=== PATIENT | female | born 1970 | race African-American/Black ===

== ENCOUNTER 2017-01-22 21:20 | Emergency (ER) | payer OTHER ==
[~2017-01-22] VITALS: Ht 175.3 cm; Wt 56.2 kg
[2017-01-22] MEDS ORDERED: IBUPROFEN 800 MG TABLET PO ONE (23:15)
[2017-01-22] MEDS ORDERED: IBUPROFEN 800 MG TABLET ONE (23:26)
--- NOTE | 2017-01-23 00:15 | NUR ---
Patient discharged to home in stable conditon. Written and verbal after care instructions given. Patient verbalizes understanding of instructions.
== END 2017-01-23 00:51 | disposition home or self-care (01) ==
LOC: ER 21:21
DX: S67.190A Crushing injury of right index finger, initial encounter (principal); S67.01XA Crushing injury of right thumb, initial encounter; S67.21XA Crushing injury of right hand, initial encounter; Z88.6 Allergy status to analgesic agent; Z88.8 Allergy status to other drugs, medicaments and biological substances; W20.8XXA Other cause of strike by thrown, projected or falling object, initial encounter; Y93.89 Activity, other specified; Y92.9 Unspecified place or not applicable; Y99.9 Unspecified external cause status
CPT/HCPCS: 73130; A4663

== ENCOUNTER 2019-02-17 18:52 | Emergency (ER) | payer OTHER ==
[~2019-02-17] VITALS: Ht 175.3 cm; Wt 55.3 kg
[2019-02-17] MEDS ORDERED: LEVE500T9 PO (19:03)
[2019-02-17] MEDS ORDERED: PANT40TA2 PO (19:03)
[2019-02-17] MEDS ORDERED: TRAZ-182 PO (19:03)
[2019-02-17] MEDS: IV NORMAL SALINE 1000 ML BAG IV ONE (19:40)
[2019-02-17 19:44] LABS: BASOPHILS # (AUTO) 0.1 K/uL (0.0-8.0); BASOPHILS % (AUTO) 1.5 % (0.0-2.0); EOSINOPHILS # (AUTO) 0.1 K/uL (0.0-0.7); EOSINOPHILS % (AUTO) 1.7 % (0.0-7.0); HEMATOCRIT 26.3 % (31.2-41.9); HEMOGLOBIN 8.7 g/dL (10.9-14.3); LYMPHOCYTES # (AUTO) 0.9 K/uL (20.0-40.0); LYMPHOCYTES % (AUTO) 25.7 % (20.5-51.5); MEAN CORPUSCULAR HGB CONC 33 g/dL (32.3-35.6); MEAN CORPUSCULAR VOLUME 72.4 fL (75.5-95.3); MONOCYTES # (AUTO) 0.4 K/uL (2.0-10.0); MONOCYTES % (AUTO) 12.4 % (0.0-11.0); NEUTROPHILS # (AUTO) 2.1 K/uL (1.8-8.9); NEUTROPHILS % (AUTO) 58.7 % (38.5-71.5); PLATELET COUNT (AUTO) 85 K/uL (179-408); RED BLOOD CELL COUNT(AUTO) 3.63 MIL/uL (3.63-4.92); WHITE BLOOD COUNT (AUTO) 3.5 K/uL (3.8-11.8)
[2019-02-17] MEDS ORDERED: ONDANSETRON 4 MG/2 ML VIAL ONE (19:45)
[2019-02-17] MEDS ORDERED: LORAZEPAM 2 MG/1 ML VIAL ONE (19:46)
[2019-02-17] MEDS: LORAZEPAM 2 MG/1 ML VIAL IV ONE (19:47)
[2019-02-17] MEDS: ONDANSETRON 4 MG/2 ML VIAL IV ONE (19:47)
[2019-02-17] MEDS ORDERED: LEVETIRACETAM 500 MG/5 ML VIAL IV ONE (19:52)
[2019-02-17] MEDS: LEVETIRACETAM IV 500 MG in IV DEXTROSE 5% 100 ML IV ONE (19:53)
[2019-02-17 19:56] LABS: BILIRUBIN,DIRECT 1.6 mg/dL (0.0-0.2); BILIRUBIN,TOTAL 3.5 mg/dL (0.2-1.0); CREATININE 0.7 mg/dL (0.6-1.3); POTASSIUM 3.6 mmol/L (3.5-5.1); TOTAL PROTEIN, SERUM 7.5 g/dL (6.4-8.2)
[2019-02-17 19:57] LABS: ACETAMINOPHEN < 2.0 ug/mL (10-30)
[2019-02-17 20:04] LABS: LYMPHOCYTES % (MANUAL) 25 % (20-40); MONOCYTES % (MANUAL) 9 % (2-10); NEUTROPHILS % (MANUAL) 66 % (42-75); THYROID STIMULATING HORMONE 1.371 mIU/mL (0.358-3.740)
--- NOTE | 2019-02-17 21:00 | NUR ---
Patient discharged to home in stable conditon. Written and verbal after care instructions given. Patient verbalizes understanding of instructions. PATIENT LEFT WITH STABLE GAIT, ACCOMPANIED BY OUTPATIENT REHAB STAFF
[2019-02-17 21:01] VITALS: BP 110/63
== END 2019-02-17 21:01 | disposition home or self-care (01) ==
LOC: ER 18:52
DX: G40.909 Epilepsy, unspecified, not intractable, without status epilepticus (principal); F10.239 Alcohol dependence with withdrawal, unspecified; D53.9 Nutritional anemia, unspecified; Z88.5 Allergy status to narcotic agent; Z88.8 Allergy status to other drugs, medicaments and biological substances; Z79.899 Other long term (current) drug therapy; Y90.2 Blood alcohol level of 40-59 mg/100 ml
CPT/HCPCS: 36415; 80048; 80076; 84443; 84702; 85025; 96374; 96375; 99283; G0480 ×2; G0481; J1953; J2060; J2405; J7060; A4663; J7030

== ENCOUNTER 2019-06-26 20:41 | Inpatient (IN) | payer BC, OTHER ==
[~2019-06-26] VITALS: Ht 175.3 cm; Wt 55.3 kg
[2019-06-26] MEDS ORDERED: ONDANSETRON 4 MG/2 ML VIAL IV ONE (21:15)
[2019-06-26] MEDS ORDERED: IV NORMAL SALINE 1000 ML BAG IV ONE (21:15)
[2019-06-26] MEDS ORDERED: ONDANSETRON 4 MG/2 ML VIAL ONE (21:19)
--- NOTE | 2019-06-26 21:27 | NUR ---
PT STATES SHE IS NOT , DENIES POSSIBILITY OF . PT SIGNED WAIVER FOR CT SCAN.
[2019-06-26 21:31] LABS: EOSINOPHILS # (AUTO) 0.1 K/uL (0.0-0.7); LYMPHOCYTES # (AUTO) 0.6 K/uL (20.0-40.0); MEAN CORPUSCULAR VOLUME 68.9 fL (75.5-95.3); MONOCYTES # (AUTO) 0.2 K/uL (2.0-10.0); NEUTROPHILS # (AUTO) 1.3 K/uL (1.8-8.9); WHITE BLOOD COUNT (AUTO) 2.2 K/uL (3.8-11.8)
[2019-06-26 21:32] LABS: BASOPHILS % (AUTO) 1.3 % (0.0-2.0); EOSINOPHILS % (AUTO) 3.3 % (0.0-7.0); LYMPHOCYTES % (AUTO) 27.3 % (20.5-51.5); MEAN CORPUSCULAR HEMOGLOBIN 22.5 uug (24.7-32.8); MEAN CORPUSCULAR HGB CONC 33 g/dL (32.3-35.6); MONOCYTES % (AUTO) 7.2 % (0.0-11.0); NEUTROPHILS % (AUTO) 60.9 % (38.5-71.5)
[2019-06-26 21:35] LABS: CARBON DIOXIDE 24 mmol/L (21-32); CHLORIDE 107 mmol/L (98-107); CREATININE 0.6 mg/dL (0.6-1.3); GLUCOSE 90 mg/dL (74-106); POTASSIUM 3.4 mmol/L (3.5-5.1); UREA NITROGEN, BLOOD 6 mg/dL (7-18)
[2019-06-26 21:37] LABS: HEMATOCRIT 13.5 % (31.2-41.9); HEMOGLOBIN 4.4 g/dL (10.9-14.3); RED BLOOD CELL COUNT(AUTO) 1.96 MIL/uL (3.63-4.92)
[2019-06-26 21:38] LABS: PLATELET COUNT (AUTO) 24 K/uL (179-408)
[2019-06-26 21:40] LABS: ALANINE AMINOTRANSFERASE 26 U/L (14-59); ALKALINE PHOSPHATASE 137 U/L (50-136); ASPARTATE AMINOTRANSFERASE 55 U/L (15-37); LIPASE 193 U/L (73-393); TOTAL PROTEIN, SERUM 6.4 g/dL (6.4-8.2)
[2019-06-26 21:59] LABS: BAND % (MANUAL) 1 % (0-10); EOSINOPHILS % (MANUAL) 5 % (0-8); LYMPHOCYTES % (MANUAL) 23 % (20-40); MONOCYTES % (MANUAL) 6 % (2-10); NEUTROPHILS % (MANUAL) 65 % (42-75)
--- NOTE | 2019-06-26 22:20 | NUR ---
Pt. admitted to TELEMETRY under care of Dr. Martel. Diagnosis: Pancytopenia/Abdominal Pain Belongs List completed
--- NOTE | 2019-06-26 22:35 | NUR ---
PATIENT RECEIVED VIA GURNEY TO TELEMETRY MONITORING. ALERT AND ORIENTED X 4. NO C.O PAIN AT THIS TIME. ADMITTING DIAGNOSIS IS PANCYTOPENIA AND ABDOMINAL PAIN. C/O NAUSEA WITH NO VOMITING. FAMILY AT BEDSIDE REQUESTING TO COME BACK IN ONE HOUR. TOLD FAMILY PER PROTOCOL THAT PATIENT IS AMBULATORY AND DOESN'T NEED A SITTER WATCHING HER DURING THE NIGHT. IV IN THE LEFT WRIST 20 G WITH NS RUNNING OPEN INTO THE VEIN. BLOOD TRANSFUSION ORDER. BLOOD WAITING TO PICKED UP IN LAB. PATIENT STATES THAT SHE HAS A HISTORY OF SEIZURES. SEIZURE PRECAUTIONS INITIATED. CRITICAL LAB VALUES NOTED. WILL CONTINUE TO MONITOR.
[2019-06-26] MEDS ORDERED: POTASSIUM CHLORIDE 20 MEQ TAB.PRT.SR PO ONE (22:45)
[2019-06-26] MEDS ORDERED: FOLIC ACID 1 MG in IV DEXTROSE 5% 50 ML IV SCH (22:45)
[2019-06-26] MEDS ORDERED: IV NS 1000 ML 1,000 ML IV SCH (22:45)
[2019-06-26] MEDS ORDERED: Z GUARD REMEDY PASTE 57 GM TUBE TOP PRN (22:45)
[2019-06-26] MEDS ORDERED: FUROSEMIDE 20 MG/2 ML VIAL IV SCH (22:45)
[2019-06-26] MEDS ORDERED: MAGNESIUM HYDROXIDE 30 ML LIQUID UDC PO PRN (22:45)
[2019-06-26] MEDS ORDERED: TRAZODONE 50 MG TABLET PO SCH (22:45)
[2019-06-26] MEDS ORDERED: ONDANSETRON HCL 4 MG TABLET PO SCH (22:45)
[2019-06-26] MEDS ORDERED: PHARMACY TO ADD 1 AMP OF MVI DAILY TO IVF ONE BAG XX PRN (22:45)
[2019-06-26] MEDS ORDERED: MVI ADULT 10 ML VIAL=1 AMP 10 ML in IV NS 1000 ML 1,000 ML IV SCH (23:30)
[2019-06-27] VITALS (22 sets, daily range): BP systolic 102–130; BP diastolic 48–82
--- NOTE | 2019-06-27 00:15 | NUR ---
BLOOD TRANSFUSION STARTED.
[2019-06-27] MEDS ORDERED: THIAMINE HCL 200 MG/2 ML VIAL ONE (00:42)
[2019-06-27] MEDS ORDERED: FOLIC ACID 5 MG/ML VIAL IV ONE (00:42)
[2019-06-27] MEDS ORDERED: MVI-12 10 ML ONE (00:52)
--- NOTE | 2019-06-27 01:15 | NUR ---
PATIENT HAD GRAND MOL SEIZURE LASTING 20 SECONDS. OXYGEN STARTED BY RAPID RESPONSE. MINE DEPUTY WYATT CONTACTED MY CHARGE NURSE AND ATIVAN ORDER OBTAINED. WILL CONTINUE TO MONITOR.
[2019-06-27] MEDS: LORAZEPAM 2 MG/1 ML VIAL IV PRN ×2 (01:29→16:05)
[2019-06-27] MEDS: THIAMINE HCL INJ 100 MG in IV DEXTROSE 5% 50 ML IV SCH ×2 (01:32→22:08)
--- NOTE | 2019-06-27 02:50 | NUR ---
SECOND BLOOD PACK STARTED. TOLERATING WELL
[2019-06-27] MEDS: ONDANSETRON 4 MG/2 ML VIAL IV PRN ×3 (03:01→16:05)
--- NOTE | 2019-06-27 05:50 | NUR ---
THIRD UNIT OF BLOOD STARTED. WILL CONTINUE TO MONITOR.
[2019-06-27] MEDS: PANTOPRAZOLE SODIUM 40 MG TABLET.DR PO SCH (06:50)
[2019-06-27] MEDS ORDERED: MVI ADULT 10 ML VIAL=1 AMP 10 ML in IV NS 1000 ML 1,000 ML IV PRN (08:18)
[2019-06-27] MEDS ORDERED: LEVETIRACETAM 500 MG TABLET PO SCH (09:00)
[2019-06-27] MEDS: LEVETIRACETAM 500 MG TABLET PO SCH ×2 (09:06→21:13)
[2019-06-27] MEDS ORDERED: KETOROLAC TROMETHAMINE 30 MG INJ IVP ONE (10:00)
[2019-06-27 10:26] LABS: CARBON DIOXIDE 23 mmol/L (21-32); CHLORIDE 108 mmol/L (98-107); CHOLESTEROL 110 mg/dL (<200); CREATININE 0.5 mg/dL (0.6-1.3); GLUCOSE 97 mg/dL (74-106); HDL CHOLESTEROL 53 mg/dL (40-60); MAGNESIUM 1.4 mg/dL (1.8-2.4); PHOSPHOROUS 3.1 mg/dL (2.5-4.9); POTASSIUM 3.5 mmol/L (3.5-5.1); TRIGLYCERIDES 39 MG/DL (30-150); UREA NITROGEN, BLOOD 4 mg/dL (7-18)
[2019-06-27 10:41] LABS: BASOPHILS % (AUTO) 1.8 % (0.0-2.0); EOSINOPHILS # (AUTO) 0.1 K/uL (0.0-0.7); EOSINOPHILS % (AUTO) 2.4 % (0.0-7.0); LYMPHOCYTES # (AUTO) 0.4 K/uL (20.0-40.0); LYMPHOCYTES % (AUTO) 18.8 % (20.5-51.5); MEAN CORPUSCULAR HEMOGLOBIN 25.9 uug (24.7-32.8); MEAN CORPUSCULAR HGB CONC 34 g/dL (32.3-35.6); MEAN CORPUSCULAR VOLUME 77.3 fL (75.5-95.3); MONOCYTES # (AUTO) 0.1 K/uL (2.0-10.0); MONOCYTES % (AUTO) 6.8 % (0.0-11.0); NEUTROPHILS # (AUTO) 1.5 K/uL (1.8-8.9); NEUTROPHILS % (AUTO) 70.2 % (38.5-71.5); RED BLOOD CELL COUNT(AUTO) 2.75 MIL/uL (3.63-4.92); WHITE BLOOD COUNT (AUTO) 2.1 K/uL (3.8-11.8)
[2019-06-27 10:56] LABS: HEMOGLOBIN 7.1 g/dL (10.9-14.3)
[2019-06-27 10:57] LABS: HEMATOCRIT 21.3 % (31.2-41.9)
[2019-06-27 10:58] LABS: PLATELET COUNT (AUTO) 18 K/uL (179-408)
[2019-06-27 11:19] LABS: BAND % (MANUAL) 2 % (0-10); EOSINOPHILS % (MANUAL) 4 % (0-8); LYMPHOCYTES % (MANUAL) 12 % (20-40); MONOCYTES % (MANUAL) 8 % (2-10); NEUTROPHILS % (MANUAL) 74 % (42-75)
[2019-06-27] MEDS: IV NS 1000 ML 1,000 ML IV PRN (14:05)
[2019-06-27 16:11] LABS: HEMATOCRIT 25.9 % (31.2-41.9); HEMOGLOBIN 8.9 g/dL (10.9-14.3)
--- NOTE | 2019-06-27 20:52 | NUR ---
report given to ambulance personnel. v/s stable and no signs of acute distress. report given to shelter from morning nurse. paperwork completed by morning nurse. patient discharged with belongings. Addendum: 06/27/19 at 2101 by JAM BOYER RN wrong patient
[2019-06-27] MEDS ORDERED: TRAZODONE 50 MG TABLET PO SCH (21:00)
[2019-06-27] MEDS: TRAZODONE 50 MG TABLET PO SCH (21:13)
[2019-06-27] MEDS ORDERED: ONDANSETRON HCL 4 MG TABLET PO PRN (22:45)
[2019-06-28 01:10] VITALS: BP 110/68
--- NOTE | 2019-06-28 05:52 | NUR ---
patient received in bed with family at bedside. no s/s of acute distress and v/s stable at this throughout shift. safety and comfort measures provided. bed in lowest position, side rails up x2, bed in lowest position. NSR on tele monitor. will continue plan of care and endorse accordingly.
[2019-06-28 05:54] VITALS: BP 108/66
[2019-06-28 06:20] LABS: EOSINOPHILS # (AUTO) 0.1 K/uL (0.0-0.7); LYMPHOCYTES # (AUTO) 0.5 K/uL (20.0-40.0); MONOCYTES # (AUTO) 0.2 K/uL (2.0-10.0)
[2019-06-28 06:23] LABS: BASOPHILS % (AUTO) 0.7 % (0.0-2.0); EOSINOPHILS % (AUTO) 5.1 % (0.0-7.0); HEMATOCRIT 24.9 % (31.2-41.9); HEMOGLOBIN 8.5 g/dL (10.9-14.3); LYMPHOCYTES % (AUTO) 17.6 % (20.5-51.5); MEAN CORPUSCULAR HEMOGLOBIN 26.4 uug (24.7-32.8); MEAN CORPUSCULAR HGB CONC 34 g/dL (32.3-35.6); MEAN CORPUSCULAR VOLUME 77.4 fL (75.5-95.3); MONOCYTES % (AUTO) 6.2 % (0.0-11.0); NEUTROPHILS % (AUTO) 70.4 % (38.5-71.5); RED BLOOD CELL COUNT(AUTO) 3.22 MIL/uL (3.63-4.92); WHITE BLOOD COUNT (AUTO) 2.8 K/uL (3.8-11.8)
[2019-06-28] MEDS: PANTOPRAZOLE SODIUM 40 MG TABLET.DR PO SCH (06:31)
[2019-06-28 06:40] LABS: CREATININE 0.7 mg/dL (0.6-1.3); POTASSIUM 3.2 mmol/L (3.5-5.1)
[2019-06-28 06:58] LABS: PLATELET COUNT (AUTO) 15 K/uL (179-408)
--- NOTE | 2019-06-28 06:59 | NUR ---
CRITICAL LAB VALUE FOR PLATELET [address] MATTHEWS. NO NEW ORDERS AT THIS TIME.
--- NOTE | 2019-06-28 07:30 | NUR ---
Patient calm and comfortable resting in bed with no signs of distress; patient with stable vital signs ; patient will continue to be monitored.
[2019-06-28] MEDS ORDERED: PHARMACY TO ADD 1 AMP OF MVI DAILY TO IVF ONE BAG XX PRN (07:45)
[2019-06-28] MEDS ORDERED: MVI ADULT 10 ML VIAL=1 AMP 10 ML in IV NS 1000 ML 1,000 ML IV PRN (07:45)
[2019-06-28] MEDS ORDERED: POTASSIUM CHLORIDE 20 MEQ TAB.PRT.SR PO ONE (08:15)
[2019-06-28] MEDS ORDERED: MULTIVITAMINS,THERAPEUTIC TABLET PO ONE (09:00)
[2019-06-28] MEDS: LEVETIRACETAM 500 MG TABLET PO SCH ×2 (09:23→20:54)
[2019-06-28 11:22] VITALS: BP 110/67
[2019-06-28] MEDS: IV NS 1000 ML 1,000 ML IV PRN (14:27)
[2019-06-28 16:00] VITALS: BP 124/79
--- NOTE | 2019-06-28 18:51 | NUR ---
Patient calm and comfortable through out shift with no signs of distress with rehabilitation caregiver by bedside. Patient gave verbal consent that caregiver could speak directly to MD ; platelets order but not ready by lab until 5:45 per [employer] [facility]; when platelets brought up ; barcode unable to be read ; Report given to oncoming nurse to administer platelets when ready by lab. Caregiver and MD spoke and MD requested that if patient wanted a later transfer to [facility] as patient primary caregivers at location to notified Md so that he could communicate with case management. Patient with vital signs and medication compliant. Report given to oncoming nurse.
[2019-06-28 20:00] VITALS: BP 123/76
[2019-06-28] MEDS: TRAZODONE 50 MG TABLET PO SCH (20:54)
[2019-06-28] MEDS: THIAMINE HCL INJ 100 MG in IV DEXTROSE 5% 50 ML IV SCH ×2 (20:54→21:00)
[2019-06-28] MEDS: LORAZEPAM 2 MG/1 ML VIAL IV PRN ×2 (21:53→22:09)
[2019-06-28] MEDS: FOLIC ACID 1 MG in IV DEXTROSE 5% 50 ML IV SCH (22:09)
--- NOTE | 2019-06-28 22:09 | NUR ---
c/o of anxiety. administered ativan PRN. tolerated well.
--- NOTE | 2019-06-28 22:25 | NUR ---
transfusion complete. v/s stable. tolerated well. no reactions. will continue to monitor. Addendum: 06/29/19 at 0330 by JAM BOYER RN transfusion completed [id number]
--- NOTE | 2019-06-28 22:30 | NUR ---
picked up transfusion from laboratory. barcodes not scanning on [employer] transfusion verify. same problem was occurring during the day time, but problem was not fixed. Poppy Baltazar from laboratory and [facility] laboratory secretary Ashutosh barry reported that it was okay to give to patient and no other way to fix barcode scanning reoccurring issue. will transfuse and continue to monitor. charge aware of situation. Addendum: 06/29/19 at 0339 by JAM BOYER RN manually reported transfusion verification. in patients chart. Addendum: 06/29/19 at 0346 by JAM BOYER RN consent form signed and in patients file.
[2019-06-29] VITALS (9 sets, daily range): BP systolic 106–129; BP diastolic 63–80
[2019-06-29] MEDS: FOLIC ACID 1 MG in IV DEXTROSE 5% 50 ML IV SCH (00:09)
--- NOTE | 2019-06-29 00:15 | NUR ---
Dr. purdy contacted regarding blood in urine. no new orders at this time.
[2019-06-29] MEDS: IV NS 1000 ML 1,000 ML IV PRN ×2 (04:22→23:00)
[2019-06-29] MEDS: PANTOPRAZOLE SODIUM 40 MG TABLET.DR PO SCH (06:08)
[2019-06-29 06:44] LABS: BASOPHILS % (AUTO) 0.9 % (0.0-2.0); EOSINOPHILS # (AUTO) 0.1 K/uL (0.0-0.7); EOSINOPHILS % (AUTO) 2.1 % (0.0-7.0); HEMATOCRIT 24.5 % (31.2-41.9); HEMOGLOBIN 8.3 g/dL (10.9-14.3); LYMPHOCYTES # (AUTO) 0.4 K/uL (20.0-40.0); LYMPHOCYTES % (AUTO) 10.5 % (20.5-51.5); MEAN CORPUSCULAR HEMOGLOBIN 26.5 uug (24.7-32.8); MEAN CORPUSCULAR HGB CONC 34 g/dL (32.3-35.6); MEAN CORPUSCULAR VOLUME 78.8 fL (75.5-95.3); MONOCYTES # (AUTO) 0.2 K/uL (2.0-10.0); NEUTROPHILS # (AUTO) 2.8 K/uL (1.8-8.9); NEUTROPHILS % (AUTO) 81.5 % (38.5-71.5); RED BLOOD CELL COUNT(AUTO) 3.11 MIL/uL (3.63-4.92); WHITE BLOOD COUNT (AUTO) 3.5 K/uL (3.8-11.8)
[2019-06-29 07:18] LABS: CREATININE 0.7 mg/dL (0.6-1.3)
--- NOTE | 2019-06-29 07:21 | NUR ---
DR. PEDERSEN MADE AWARE OF CRITICAL LAB VALUE PLATELET [address]. [address] NECESSARY ORDERS.
[2019-06-29 07:22] LABS: PLATELET COUNT (AUTO) 20 K/uL (179-408)
--- NOTE | 2019-06-29 08:00 | NUR ---
Received pt. resting in bed alert oriented x4 with staff assistant at bedside. Pt. has IV in R hand 20 gauge intact patent running prescribed fluids. Pt. has wolf catheter in draining yellow urine with some blood tinge color. aware of urine. Pt. on seizure precautions side rails padded. Pt. denies nausea, headache, dizziness, chills. Pt. comfortable and complaint with care. Safety measures in place. All needs met. Call light within reach. Will continue to monitor pt.
[2019-06-29 08:14] LABS: EOSINOPHILS % (MANUAL) 2 % (0-8); LYMPHOCYTES % (MANUAL) 3 % (20-40); NEUTROPHILS % (MANUAL) 95 % (42-75)
[2019-06-29] MEDS: MULTIVITAMINS,THERAPEUTIC TABLET PO SCH (08:31)
[2019-06-29] MEDS: LEVETIRACETAM 500 MG TABLET PO SCH ×2 (08:31→20:44)
[2019-06-29] MEDS ORDERED: POTASSIUM CHLORIDE 20 MEQ TAB.PRT.SR PO ONE (09:45)
[2019-06-29 10:25] LABS: *CLARITY,URINE CLOUDY (CLEAR); *COLOR,URINE AMBER (YELLOW); *KETONES,URINE 2+ (NEGATIVE); UGLUCOSE NEG (NEGATIVE)
[2019-06-29 10:26] LABS: *BILIRUBIN,URIN 2+ (NEGATIVE); LEUKOCYTE ESTERASE ,URINE NEGATIVE (NEGATIVE); NITRITE, URINE NEG (NEGATIVE)
[2019-06-29 10:27] LABS: *BLOOD, URINE 3+ (NEGATIVE)
[2019-06-29 10:45] LABS: BACTERIA,URINE NONE SEEN /HPF (NONE SEEN); RBC,URINE TNTC /HPF (0-3); SQUAMOUS EPITHELIAL CELL,UR FEW /HPF (NONE SEEN); WBC,URINE NONE SEEN /HPF (0-3)
--- NOTE | 2019-06-29 11:00 | NUR ---
Pt. ordered to receive platelet transfusion. Spoke to charge nurse about platelet transfusion policy and what infusion rate is recommended Also stated pt. has a [address] and is a hard stick do we need a larger gauge as with normal blood we need 20 gauge or greater. Charge nurse stated as long as it is flushing it is okay and pt. had transfusion prior with this gauge size. Checked 22 gauge IV on hand and it is flushing well.
--- NOTE | 2019-06-29 12:00 | NUR ---
Charge nurse printed policy of blood transfusion; however, it does not state anything about platelet transfusion. He stated to start transfusion at low rate and to go up to 120 cc/hr. Platelets transfusing well. Vital signs stable. CRISTIN Gay verified platelet transfusion and witnessed rate platelets should be running at.
[2019-06-29] MEDS: POTASSIUM CHLORIDE 10 MEQ TAB.PRT.SR PO SCH ×2 (12:36→16:50)
--- NOTE | 2019-06-29 14:20 | NUR ---
IV started leaking during platelet transfusion. [employer] aware. TECHNICAL ACCOUNT MANAGER and MARKING MACHINE OPERATOR both attempted to put in 22 gauge IVs as pt.'s veins are small. No IV access available. Stopped transfusion and returned platelets back to lab. Midline ordered. Not going to be able to have midline put in until 9 PM tonight according to RN supervisor bottle house cleaners. Spoke to Dr. Martel over the phone explaining situation. He stated that we will check her labs tomorrow morning to see if she needs more platelets and if pt. wants lab draws done to check platelets able to put in order for 10 PM, wolf catheter able to be removed. Pt. aware of plan of care.
--- NOTE | 2019-06-29 15:22 | NUR ---
Pt. has temperature of 99.1 low grade fever. Applying cooling measures. Will recheck temperature
--- NOTE | 2019-06-29 17:56 | NUR ---
Rechecked temperature it is now 98.6. Pt. in no distress. All needs met. Safety measures in place. Call light within reach. will continue to monitor pt.
[2019-06-29] MEDS: THIAMINE HCL 100 MG TABLET PO SCH (20:44)
[2019-06-29] MEDS: FOLIC ACID 1 MG TABLET PO SCH (20:44)
[2019-06-29] MEDS: TRAZODONE 50 MG TABLET PO SCH (20:44)
--- NOTE | 2019-06-29 22:15 | NUR ---
New midline inserted by Midline Nurse on the MAUREEN. Flushing well. intact, fluids resumed. Pt sleeping well at this time.
[2019-06-30 05:15] VITALS: BP 107/65
--- NOTE | 2019-06-30 06:04 | NUR ---
Slept well through the night with no issues. Fall and safety precautions maintained. Will continue to monitor and endorse accordingly.
[2019-06-30] MEDS: PANTOPRAZOLE SODIUM 40 MG TABLET.DR PO SCH (06:29)
[2019-06-30 06:48] LABS: CREATININE 0.6 mg/dL (0.6-1.3); POTASSIUM 3.5 mmol/L (3.5-5.1)
[2019-06-30 07:28] LABS: HEMATOCRIT 23.8 % (31.2-41.9); HEMOGLOBIN 8.1 g/dL (10.9-14.3); LYMPHOCYTES # (AUTO) 0.5 K/uL (20.0-40.0); MONOCYTES # (AUTO) 0.2 K/uL (2.0-10.0); NEUTROPHILS # (AUTO) 1.7 K/uL (1.8-8.9)
[2019-06-30 07:43] LABS: BASOPHILS % (AUTO) 0.5 % (0.0-2.0); EOSINOPHILS # (AUTO) 0.1 K/uL (0.0-0.7); EOSINOPHILS % (AUTO) 4.8 % (0.0-7.0); MEAN CORPUSCULAR HEMOGLOBIN 27.8 uug (24.7-32.8); MEAN CORPUSCULAR HGB CONC 34 g/dL (32.3-35.6); MEAN CORPUSCULAR VOLUME 81.6 fL (75.5-95.3); MONOCYTES % (AUTO) 8.2 % (0.0-11.0); NEUTROPHILS % (AUTO) 67.5 % (38.5-71.5); RED BLOOD CELL COUNT(AUTO) 2.92 MIL/uL (3.63-4.92)
[2019-06-30 07:47] LABS: WHITE BLOOD COUNT (AUTO) 2.5 K/uL (3.8-11.8)
[2019-06-30 07:48] LABS: PLATELET COUNT (AUTO) 23 K/uL (179-408)
--- NOTE | 2019-06-30 08:00 | NUR ---
Received pt. resting in bed alert oriented x4. Pt. has R UA midline in running prescribed fluids. Pt. on seizure precautions side rails padded. Pt. denies nausea, headache, dizziness, chills. Pt. comfortable and complaint with care. Safety measures in place. All needs met. Call light within reach. Will continue to monitor pt.
[2019-06-30] MEDS: LEVETIRACETAM 500 MG TABLET PO SCH ×2 (09:03→21:32)
[2019-06-30] MEDS: MULTIVITAMINS,THERAPEUTIC TABLET PO SCH (09:03)
[2019-06-30 10:34] LABS: EOSINOPHILS % (MANUAL) 6 % (0-8); LYMPHOCYTES % (MANUAL) 18 % (20-40); MONOCYTES % (MANUAL) 9 % (2-10); NEUTROPHILS % (MANUAL) 67 % (42-75)
[2019-06-30 11:27] VITALS: BP 125/80
[2019-06-30] MEDS: IV NS 1000 ML 1,000 ML IV PRN ×2 (11:31→21:32)
[2019-06-30] MEDS ORDERED: BENZOCAINE/MENTH/CETYLPYRD LOZENGE MM PRN (13:45)
[2019-06-30 15:36] VITALS: BP 126/81
--- NOTE | 2019-06-30 17:50 | NUR ---
received telephone order for 1 pack of platelets for tomorrow 07/01/[address] Martel spoke to radiologist who will come tomorrow to perform ultrasound guided paracentesis if enough fluid to drain. Pt.'s insurance administrative assistant wants Dr. Martel to know about tansfer to [facility] with transfer under Dr. Ricky Mitchell who will be the admitting doctor. Paged Dr. Martel. Spoke to Susan who called [facility] and is faxing paperwork. Will endorse to PM nurse.
[2019-06-30] MEDS: FOLIC ACID 1 MG TABLET PO SCH (21:32)
[2019-06-30] MEDS: THIAMINE HCL 100 MG TABLET PO SCH (21:32)
[2019-06-30] MEDS: TRAZODONE 50 MG TABLET PO SCH (21:32)
[2019-06-30] MEDS ORDERED: CEFTRIAXONE 1 G VIAL ONE (22:42)
[2019-07-01] VITALS (7 sets, daily range): BP systolic 111–128; BP diastolic 68–84
[2019-07-01] MEDS ORDERED: CEFTRIAXONE 1 G in IV DEXTROSE 5% 50 ML IV SCH ×2
--- NOTE | 2019-07-01 | NUR ---
patient labs shows Enterococcus in the urine , per dr Zuñiga, start on 1 G Rocephin IV Q24h.
[2019-07-01] MEDS: PANTOPRAZOLE SODIUM 40 MG TABLET.DR PO SCH (06:44)
[2019-07-01] MEDS: IV NS 1000 ML 1,000 ML IV PRN (06:50)
--- NOTE | 2019-07-01 07:30 | NUR ---
Patient calm and comfortable upon initial assessment with no signs of distress; patient will continue to be monitored.
[2019-07-01] MEDS: LEVETIRACETAM 500 MG TABLET PO SCH (08:21)
[2019-07-01] MEDS: MULTIVITAMINS,THERAPEUTIC TABLET PO SCH (08:21)
--- NOTE | 2019-07-01 18:54 | NUR ---
Patient discharged home in stable condition; patient given 1 bag of platelets and us guided paracentesis with draining of 3L; patient with stable vital signs through out shift; patient educated on discharge instructions and medication refill ; patient verbalized understanding; patient left private car with family friend.
== END 2019-07-01 19:00 | disposition home or self-care (01) | DRG 809 ==
LOC: ER 20:44 → TELE3 22:21 → MEDSURG3 06-28 09:40
PROVIDERS: ADMIT Family Medicine; ATTEND Family Medicine
PROC: 30233N1 Transfusion of Nonautologous Red Blood Cells into Peripheral Vein, Percutaneous Approach (ICD-10-PCS; principal; 2019-06-27)
PROC: 30233R1 Transfusion of Nonautologous Platelets into Peripheral Vein, Percutaneous Approach (ICD-10-PCS; 2019-06-28)
PROC: 05H933Z Insertion of Infusion Device into Right Brachial Vein, Percutaneous Approach (ICD-10-PCS; 2019-06-29)
PROC: 0W9G3ZZ Drainage of Peritoneal Cavity, Percutaneous Approach (ICD-10-PCS; 2019-07-01)
DX: D61.818 Other pancytopenia (principal); E87.2 Acidosis; K86.1 Other chronic pancreatitis; E44.0 Moderate protein-calorie malnutrition; K70.31 Alcoholic cirrhosis of liver with ascites; F10.20 Alcohol dependence, uncomplicated; Y90.9 Presence of alcohol in blood, level not specified; E87.6 Hypokalemia; D75.89 Other specified diseases of blood and blood-forming organs; Z97.5 Presence of (intrauterine) contraceptive device; E83.42 Hypomagnesemia; G40.909 Epilepsy, unspecified, not intractable, without status epilepticus; Z80.0 Family history of malignant neoplasm of digestive organs
CPT/HCPCS: 36415; 70030-TC; 71045; 83550; 83605; 83690; 83735; 84100; 85018; 85025; 85730; 86850; 86900; 86901; 86920; 87040; 87077; 87086; 87400; 93005; A4663; G0378; J0696; J1885; J1940; J2060; J2405; J3411; J3490; J7030; J7040; J7050; J7060; P9016-BL; P9021; P9035-BL